=== PATIENT | female | born 1985 | race Caucasian/White ===

== ENCOUNTER 2017-02-19 15:25 | Emergency (ER) | payer MEDICAID, OTHER ==
[~2017-02-19] VITALS: Ht 162.6 cm; Wt 64.0 kg
[~2017-02-19 15:25] MED LIST: PREN-46 PO
[2017-02-19 15:29] VITALS: Ht 162.6 cm; Wt 64.0 kg
[2017-02-19] MEDS ORDERED: HYDROCODONE/APAP (5/325) TAB PO ONE (16:00)
--- NOTE | 2017-02-19 16:53 | RADRPT ---
PROCEDURE: Left ankle series CLINICAL INDICATION: Left ankle pain. TECHNIQUE: AP, oblique, and lateral views of the left ankle were obtained. COMPARISON: None FINDINGS: No acute fracture or dislocations are seen. The osseous structures are well mineralized. The ankle mortise is intact. The articular surfaces are normal. No evidence of a joint effusion is seen. M ild to moderate lateral malleolar soft tissue swelling is seen. The remaining soft tissue structure s are intact. A plantar calcaneal spur is seen. IMPRESSION: Mild to moderate lateral malleolus soft tissue swelling. RPTAT: HPNM Physician Marita Date Time Electronically viewed and signed by Physician Marita on 02/19/2017 16:52 /
[2017-02-19] MEDS ORDERED: IBUP400T22 PO (17:04)
--- NOTE | 2017-02-19 17:09 | ERA ---
ER Documentation Chief Complaint Date/Time DATE: 02/19/17 TIME: 17:06 Chief Complaint LT ANKLE PAIN /SWOLLEN , TWISTED TODAY HPI This is a otherwise healthy 31-year-old female who presents 12 hour status post left ankle injury. Patient was walking down the steps when she misjudged and hyper plantar flexed her foot. Patient states that she is now having pain over the lateral aspect of the left foot. Ambulation makes it worse. Tylenol without relief. Denies hearing/feeling popping sensation. No other complaints. Describes no other associated manifestations. Nursing notes have been reviewed and are consistent with the history given. ROS All systems reviewed and are negative except as per history of present illness. Medications Home Meds Active Scripts Ibuprofen* (Motrin*) 400 Mg Tab, 400 MG PO Q6, #30 TAB Prov:TWAN SAM PA-C 02/19/17 Reported Medications Vit #108/Iron/Fa ( ONE TABLET) 1 Each Tablet, 1 EACH PO DAILY, #1 06/01/13 Allergies Allergies: Coded Allergies: Penicillins (Verified Allergy, Mild, 11/20/09) PMhx/Soc History of Surgery: No Anesthesia Reaction: No Hx Neurological Disorder: No Hx Respiratory Disorders: No Hx Cardiac Disorders: No Hx Psychiatric Problems: No Hx Miscellaneous Medical Probl: No Hx Alcohol Use: No Hx Substance Use: No Hx Tobacco Use: No Physical Exam Vitals Vital Signs Date Time Temp Pulse Resp B/P Pulse Ox O2 Delivery O2 Flow Rate FiO2 02/19/17 15:29 98.1 98 18 128/81 98 Physical Exam Const: 31-year-old female no acute distress Head: Atraumatic Eyes: Normal Conjunctiva. PERRLA, EOMI bilaterally. ENT: Normal External Ears, Nose and Mouth. Neck: Full range of motion..~ No meningismus. Resp: Clear to auscultation bilaterally Cardio: Regular rate and rhythm, no murmurs Abd: Soft, non tender, non distended. Normal bowel sounds Skin: No petechiae or rashes Back: No midline or flank tenderness Ext: Tenderness distal to the left lateral malleolus. Mild swelling. No cyanosis, obvious deformities, or discoloration of skin. Achilles tendon intact. Neur: Awake and alert Psych: Normal Mood and Affect Results 24 hrs Current Medications Medications (Trade) Dose Ordered Sig/Lydia Route PRN Reason Start Time Stop Time Status Last Admin Dose Admin Acetaminophen/ Hydrocodone Bitart ([place] (5/325)) 1 tab ONCE ONCE PO 02/19/17 16:00 02/19/17 16:01 DC 02/19/17 15:56 Procedures/MDM Otherwise healthy 31-year-old female presenting 12 hour status post left ankle injury as described in history and physical examination. X-ray was obtained, read by the radiologist, given the following impression: Soft tissue swelling. But otherwise unremarkable. At this time of little suspicion for bony pathology or neurovascular compromise. Patient will be discharged with discharge instructions return precautions. Discharge medications will include ibuprofen as needed for pain. Crutches will be given to the patient for assist ADLs. I spent with the patient she agrees with assessment and plan. Vitals are stable and current condition is appropriate for discharge. Departure Diagnosis: Primary Impression: Ankle injury Qualified Code: S99.912A - Ankle injury, left, initial encounter Condition: Stable Patient Instructions: Treating Ankle Sprains Referrals: [facility] Hours: Thu-Thu 9:00 AM - 5:00 PM Additional Instructions: Follow up with your PCP within the next 1-3 days for a more thorough evaluation and a possible referral to a specialist. If unable to see PCP, contact or so with the information provided in this packet. Return the the emergency department immediately if symptoms worsen or change. If you have any questions regarding medications, ask your pharmacist or us before you leave. If any adverse reactions occur while taking your medications, discontinue the treatment and return to the emergency department immediately. Take your medications as directed, and complete the entire course of treatment. TWAN SAM PA-C Feb 19, 2017 17:06
== END 2017-02-19 17:28 | disposition home or self-care (01) ==
LOC: FTE 15:25
DX: S99.912A Unspecified injury of left ankle, initial encounter (principal); X50.9XXA Other and unspecified overexertion or strenuous movements or postures, initial encounter; Y92.9 Unspecified place or not applicable
CPT/HCPCS: 73610; Z7502; Z7610

== ENCOUNTER 2017-12-15 20:25 | Emergency (ER) | END 2017-12-15 22:40 | disposition home or self-care (01) ==